=== PATIENT | male | born 1945 | race Caucasian/White ===

== ENCOUNTER 2018-12-15 22:03 | Inpatient (IN) ==
[2018-12-15] MEDS ORDERED: Ipratropium/Albuterol Neb 3 ML IH ONE (22:11)
[2018-12-15] MEDS ORDERED: methylPREDNISolone 125 MG/2 ML VIAL IVP ONE (22:11)
[2018-12-15] MEDS ORDERED: Isovue-370 500 ML BOTTLE IVP ONE ×2 (22:14→23:06)
[2018-12-15] MEDS ORDERED: 0.9 % Sodium Chloride 1,000 ML ONE (22:20)
[2018-12-15 22:28] LABS: Hemoglobin 10.5 g/dL (12.9-16.9); Immature Granulocytes % 0.2 % (0-4); Lymphocytes # 0.8 K/mcL (0.6-4.6); Lymphocytes % 12.8 %; Mean Corpuscular HGB Conc 32.8 g/dL (31.6-35.5); Mean Corpuscular Hemoglobin 31.6 pg (28.0-33.3); Mean Corpuscular Volume 96.4 fL (83.0-100.0); Mean Platelet Volume 9.1 fL (9.4-12.4); Monocytes # 0.2 K/mcL (0.0-1.3); Monocytes % 3.4 %; Neutrophils # 5.4 K/mcL (1.6-8.9); Platelet Count 314 K/mcL (140-400); Red Blood Count 3.32 M/mcL (4.19-5.50); Red Cell Distribution Width 13.1 % (11.5-14.5); Segmented Neutrophils % 83.6 %; White Blood Count 6.4 K/mcL (4.3-11.1)
[2018-12-15 22:48] LABS: ABG Base Excess 3 mEq/L (-2 to 3); ABG HCO3 29 mEq/L (21-27); ABG Oxygen Saturation 78 % (95-98); ABG PCO2 46 mmHg (35-45); ABG PO2 43 mmHg (85-104); ABG TCO2 30 mEq/L (20-26)
[2018-12-15 22:51] LABS: Platelet Estimate Normal (Normal)
[2018-12-15 22:53] LABS: Potassium 5.1 mEq/L (3.5-5.1)
[2018-12-15] MEDS ORDERED: Piperacillin/Tazobactam 3.375 GM in 0.9 % Sodium Chloride Mini Bag 100 ML IVPB ONE (22:58)
[2018-12-15] MEDS ORDERED: 0.9 % Sodium Chloride 500 ML IVC STA (22:58)
[2018-12-15 23:06] LABS: Bilirubin,Urine Negative (Negative); Blood,Urine Negative (Negative); Color,Urine Yellow (Yellow); Glucose,Urine (UA) Normal (Normal); Ketones,Urine Negative (Negative); Leukocyte Esterase,Urine Negative (Negative); Nitrite,Urine Negative (Negative); PH,Urine 5.5 pH Units (5.0-8.0); Protein,Urine Negative (Neg-Trace); Specific Gravity,Urine 1.011 (1.010-1.025); Urobilinogen,Urine Normal (Normal)
[2018-12-15 23:13] LABS: Clarity,Urine Clear (Clear)
[2018-12-15 23:41] LABS: ABG Base Excess 8 mEq/L (-2 to 3); ABG HCO3 33 mEq/L (21-27); ABG Oxygen Saturation 95 % (95-98); ABG PCO2 48 mmHg (35-45); ABG PH 7.45 pH Units (7.32-7.45); ABG PO2 75 mmHg (85-104); ABG TCO2 34 mEq/L (20-26)
[2018-12-15] MEDS ORDERED: 0.9 % Sodium Chloride 1,000 ML IVC ONE (23:41)
[2018-12-15 23:54] LABS: Troponin I 0.03 ng/mL (< 0.04)
[2018-12-16] MEDS ORDERED: *HR* Heparin 5,000 UNIT/ML VIAL IVP ONE (00:17)
[2018-12-16] MEDS ORDERED: *HR* Heparin 5,000 UNIT/ML VIAL IVP PRN (00:17)
[2018-12-16 00:38] LABS: INR 1.1
[2018-12-16] MEDS: Heparin 25,000 UNIT/250 ML D5W 25,000 UNIT/250 ML IV.SOLN IVC SCH (00:39)
[2018-12-16 00:41] LABS: Activated Partial Thrombo Time 26.4 Seconds (26.0-36.0)
[2018-12-16] MEDS ORDERED: 0.9 % Sodium Chloride 1,000 ML IVC SCH (01:00)
[2018-12-16] MEDS ORDERED: Naloxone 0.4 MG/ML INJ IVP PRN (05:57)
[2018-12-16] MEDS ORDERED: Albuterol 2.5 MG/3 ML NEBULIZER IH PRN (06:00)
[2018-12-16] MEDS: MethylPREDNISolone 40 MG/ML VIAL IVP SCH ×3 (06:31→17:13)
[2018-12-16 06:45] LABS: Hematocrit 23.3 % (37.5-50.1); Mean Corpuscular Hemoglobin 32.2 pg (28.0-33.3); Mean Corpuscular Volume 97.5 fL (83.0-100.0); Mean Platelet Volume 8.8 fL (9.4-12.4); Platelet Count 163 K/mcL (140-400); Red Blood Count 2.39 M/mcL (4.19-5.50); White Blood Count 4.1 K/mcL (4.3-11.1)
[2018-12-16] MEDS: *HR* Heparin 5,000 UNIT/ML VIAL IVP PRN ×2 (06:51→19:13)
[2018-12-16 07:01] LABS: Hemoglobin 7.7 g/dL (12.9-16.9)
[2018-12-16 07:15] LABS: BUN/Creatinine Ratio 28 (6-26); Blood Urea Nitrogen 39 mg/dL (8-23); Calcium 8.8 mg/dL (8.6-10.3); Carbon Dioxide 29 mEq/L (23-29); Chloride 96 mEq/L (98-107); Glucose 113 mg/dL (70-105); Osmolality,Calculated 292 (280-300); Potassium 3.6 mEq/L (3.5-5.1); Sodium 136 mEq/L (136-145); eGFR For African Americans > 60 (> 60); eGFR For Non-African Americans 50 (> 60)
[2018-12-16] MEDS: Piperacillin/Tazobactam 3.375 GM in 0.9 % Sodium Chloride Mini Bag 100 ML IVPB SCH ×2 (08:00→16:00)
[2018-12-16 08:09] LABS: Hematocrit 24.5 % (37.5-50.1)
[2018-12-16] MEDS: Ipratropium/Albuterol Neb 3 ML IH SCH ×3 (11:33→23:58)
[2018-12-16 13:09] LABS: Hematocrit 24.9 % (37.5-50.1); Hemoglobin 8.3 g/dL (12.9-16.9)
[2018-12-16] MEDS ORDERED: NIFEdipine XL (24 HR) 30 MG TAB.ER.24 PO SCH (18:00)
[2018-12-16 18:47] LABS: Hematocrit 26.6 % (37.5-50.1)
[2018-12-16] MEDS: Mirtazapine 15 MG TABLET PO SCH (20:11)
[2018-12-17] MEDS: MethylPREDNISolone 40 MG/ML VIAL IVP SCH ×4 (00:21→17:38)
[2018-12-17] MEDS: Piperacillin/Tazobactam 3.375 GM in 0.9 % Sodium Chloride Mini Bag 100 ML IVPB SCH ×3 (00:22→15:58)
[2018-12-17 02:05] LABS: Basophils % 0.2 %; Hematocrit 24.5 % (37.5-50.1); Hemoglobin 8.2 g/dL (12.9-16.9); Immature Granulocytes % 0.5 % (0-4); Lymphocytes # 0.5 K/mcL (0.6-4.6); Lymphocytes % 8.6 %; Mean Corpuscular HGB Conc 33.5 g/dL (31.6-35.5); Mean Corpuscular Hemoglobin 31.8 pg (28.0-33.3); Mean Platelet Volume 9.5 fL (9.4-12.4); Monocytes # 0.2 K/mcL (0.0-1.3); Monocytes % 2.7 %; Neutrophils # 5.2 K/mcL (1.6-8.9); Platelet Count 205 K/mcL (140-400); Red Blood Count 2.58 M/mcL (4.19-5.50); White Blood Count 5.9 K/mcL (4.3-11.1)
[2018-12-17] MEDS: Heparin 25,000 UNIT/250 ML D5W 25,000 UNIT/250 ML IV.SOLN IVC SCH (02:05)
[2018-12-17 02:21] LABS: BUN/Creatinine Ratio 29 (6-26); Blood Urea Nitrogen 38 mg/dL (8-23); Calcium 8.8 mg/dL (8.6-10.3); Carbon Dioxide 29 mEq/L (23-29); Chloride 94 mEq/L (98-107); Glucose 140 mg/dL (70-105); Osmolality,Calculated 287 (280-300); Potassium 3.5 mEq/L (3.5-5.1); Sodium 133 mEq/L (136-145); eGFR For African Americans > 60 (> 60); eGFR For Non-African Americans 54 (> 60)
[2018-12-17] MEDS: Ipratropium/Albuterol Neb 3 ML IH SCH (03:58)
[2018-12-17 04:09] LABS: Hypochromasia Present (Not Present); Platelet Estimate Normal (Normal); Reactive Lymphocytes Present (Not Present)
[2018-12-17] MEDS: Levothyroxine 25 MCG TABLET PO SCH (06:32)
[2018-12-17] MEDS ORDERED: Amiodarone Premix 150 MG/100 ML BAG IVPB ONE (06:59)
[2018-12-17] MEDS ORDERED: 0.9 % Sodium Chloride 1,000 ML IV ONE (07:26)
[2018-12-17] MEDS ORDERED: Aminoglycoside Consult 1 EACH MC ONE (07:57)
[2018-12-17] MEDS: Cyanocobalamin (B-12) 1,000 MCG TABLET PO SCH (07:59)
[2018-12-17] MEDS: Cholecalciferol (D-3) 1,000 UNIT (25MCG) TABLET PO SCH (07:59)
[2018-12-17] MEDS: Furosemide 20 MG TABLET PO SCH (08:00)
[2018-12-17 08:07] LABS: VBG HCO3 30 mEq/L (21-27); VBG PCO2 48 mmHg (41-51); VBG PO2 100 mmHg (25-50)
[2018-12-17 08:07] LABS: INR 1.1; Prothrombin Time 12.7 Seconds (9.4-12.1)
[2018-12-17 08:11] LABS: Hematocrit 24.5 % (37.5-50.1); Hemoglobin 8.3 g/dL (12.9-16.9)
[2018-12-17 08:26] LABS: Alanine Aminotransferase 6 Units/L (7-52); Albumin 2.4 g/dL (3.5-5.7); Albumin/Globulin Ratio 0.7 (1.1-2.2); Alkaline Phosphatase 86 Units/L (34-104); Aspartate Amino Transferase 7 Units/L (13-39); BUN/Creatinine Ratio 29 (6-26); Bilirubin,Total 0.5 mg/dL (0.3-1.0); Blood Urea Nitrogen 37 mg/dL (8-23); Calcium 8.7 mg/dL (8.6-10.3); Carbon Dioxide 29 mEq/L (23-29); Chloride 94 mEq/L (98-107); Globulin 3.3 g/dL (2.4-3.5); Glucose 164 mg/dL (70-105); Magnesium 1.4 mg/dL (1.6-2.6); Osmolality,Calculated 288 (280-300); Phosphorous 3.5 mg/dL (2.7-4.5); Potassium 3.4 mEq/L (3.5-5.1); Sodium 133 mEq/L (136-145); Total Protein 5.7 g/dL (6.4-8.9); eGFR For African Americans > 60 (> 60); eGFR For Non-African Americans 55 (> 60)
[2018-12-17 08:38] LABS: Thyroid Stimulating Hormone 0.598 mcIU/mL (0.340-5.600)
[2018-12-17] MEDS ORDERED: Amiodarone Premix 360 MG/200 ML BAG IVC ONE (08:44)
[2018-12-17] MEDS ORDERED: *HR* FentaNYL (PF) 100 MCG/2 ML VIAL IVP ONE (10:38)
[2018-12-17] MEDS ORDERED: *HR* Midazolam HCl 2 MG/2 ML VIAL IVP ONE (10:38)
[2018-12-17] MEDS ORDERED: *HR* FentaNYL (PF) 100 MCG/2 ML VIAL ONE (10:39)
[2018-12-17] MEDS ORDERED: *HR* Midazolam HCl 2 MG/2 ML VIAL ONE (10:39)
[2018-12-17] MEDS: Levalbuterol Neb 0.63 MG/3 ML IH SCH ×3 (10:59→21:53)
[2018-12-17] MEDS: Tiotropium 18 MCG inhalation IH SCH (11:00)
[2018-12-17] MEDS: Magnesium Oxide 400 MG TABLET PO SCH ×2 (12:27→22:28)
[2018-12-17] MEDS: Amiodarone Premix 360 MG/200 ML BAG IVC SCH (15:57)
[2018-12-17] MEDS: Doxycycline 100 MG CAPSULE PO SCH ×2 (15:57→22:28)
[2018-12-17] MEDS: Mirtazapine 15 MG TABLET PO SCH (22:28)
[2018-12-18] MEDS: MethylPREDNISolone 40 MG/ML VIAL IVP SCH ×4 (00:33→17:21)
[2018-12-18] MEDS: Piperacillin/Tazobactam 3.375 GM in 0.9 % Sodium Chloride Mini Bag 100 ML IVPB SCH ×3 (00:34→17:21)
[2018-12-18 01:44] LABS: BUN/Creatinine Ratio 33 (6-26); Blood Urea Nitrogen 38 mg/dL (8-23); Calcium 8.6 mg/dL (8.6-10.3); Carbon Dioxide 28 mEq/L (23-29); Chloride 96 mEq/L (98-107); Glucose 177 mg/dL (70-105); Osmolality,Calculated 291 (280-300); Potassium 3.5 mEq/L (3.5-5.1); Sodium 134 mEq/L (136-145); eGFR For African Americans > 60 (> 60); eGFR For Non-African Americans > 60 (> 60)
[2018-12-18 01:45] LABS: Basophils % 0.1 %; Hematocrit 24.6 % (37.5-50.1); Hemoglobin 7.9 g/dL (12.9-16.9); Immature Granulocytes % 0.7 % (0-4); Lymphocytes # 0.4 K/mcL (0.6-4.6); Lymphocytes % 4.8 %; Mean Corpuscular HGB Conc 32.1 g/dL (31.6-35.5); Mean Corpuscular Hemoglobin 31.3 pg (28.0-33.3); Mean Corpuscular Volume 97.6 fL (83.0-100.0); Mean Platelet Volume 9.7 fL (9.4-12.4); Monocytes # 0.2 K/mcL (0.0-1.3); Monocytes % 2.7 %; Neutrophils # 6.9 K/mcL (1.6-8.9); Platelet Count 223 K/mcL (140-400); Red Blood Count 2.52 M/mcL (4.19-5.50); Red Cell Distribution Width 13.1 % (11.5-14.5); Segmented Neutrophils % 91.7 %; White Blood Count 7.5 K/mcL (4.3-11.1)
[2018-12-18] MEDS: Amiodarone Premix 360 MG/200 ML BAG IVC SCH ×3 (01:58→22:29)
[2018-12-18] MEDS: Heparin 25,000 UNIT/250 ML D5W 25,000 UNIT/250 ML IV.SOLN IVC SCH (02:20)
[2018-12-18 02:55] LABS: Platelet Estimate Normal (Normal)
[2018-12-18] MEDS: Levalbuterol Neb 0.63 MG/3 ML IH SCH ×4 (04:02→20:58)
[2018-12-18] MEDS: Levothyroxine 25 MCG TABLET PO SCH (05:32)
[2018-12-18] MEDS: Doxycycline 100 MG CAPSULE PO SCH ×2 (09:11→21:13)
[2018-12-18] MEDS: Furosemide 20 MG TABLET PO SCH (09:11)
[2018-12-18] MEDS: Cholecalciferol (D-3) 1,000 UNIT (25MCG) TABLET PO SCH (09:11)
[2018-12-18] MEDS: Cyanocobalamin (B-12) 1,000 MCG TABLET PO SCH (09:11)
[2018-12-18] MEDS: Magnesium Oxide 400 MG TABLET PO SCH ×2 (09:11→21:13)
[2018-12-18] MEDS: Tiotropium 18 MCG inhalation IH SCH (10:07)
[2018-12-18] MEDS: *HR* Amiodarone 200 MG TABLET PO SCH ×2 (11:06→21:15)
[2018-12-18 13:35] LABS: Folate > 22.3 ng/mL (3.0-16.0); Vitamin B12 > 1500 pg/mL (250-1100)
[2018-12-18 13:40] LABS: % Iron Saturation 47 % (20-55); Iron 56 mcg/dL (65-175); Transferrin 85 mg/dL (203-362)
[2018-12-18 14:17] LABS: Ferritin > 1500 ng/mL (20-250)
[2018-12-18] MEDS ORDERED: Warfarin perPT PO PRN (18:00)
[2018-12-18] MEDS ORDERED: *HR* Warfarin 3 MG TABLET PO ONE (18:00)
[2018-12-18] MEDS: Mirtazapine 15 MG TABLET PO SCH (21:13)
[2018-12-18 22:27] LABS: ABG Base Excess 8 mEq/L (-2 to 3); ABG HCO3 33 mEq/L (21-27); ABG Oxygen Saturation 98 % (95-98); ABG PCO2 45 mmHg (35-45); ABG PH 7.47 pH Units (7.32-7.45); ABG PO2 100 mmHg (85-104); ABG TCO2 34 mEq/L (20-26)
[2018-12-19] MEDS: MethylPREDNISolone 40 MG/ML VIAL IVP SCH ×2 (01:29→06:16)
[2018-12-19] MEDS: Piperacillin/Tazobactam 3.375 GM in 0.9 % Sodium Chloride Mini Bag 100 ML IVPB SCH ×2 (01:29→07:41)
[2018-12-19] MEDS: Heparin 25,000 UNIT/250 ML D5W 25,000 UNIT/250 ML IV.SOLN IVC SCH (03:10)
[2018-12-19] MEDS: Levalbuterol Neb 0.63 MG/3 ML IH SCH ×4 (04:41→22:19)
[2018-12-19 04:46] LABS: Basophils % 0.1 %; Hematocrit 24.3 % (37.5-50.1); Hemoglobin 8.3 g/dL (12.9-16.9); Immature Granulocytes % 0.7 % (0-4); Lymphocytes # 0.3 K/mcL (0.6-4.6); Lymphocytes % 3.8 %; Mean Corpuscular HGB Conc 34.2 g/dL (31.6-35.5); Mean Corpuscular Hemoglobin 31.6 pg (28.0-33.3); Mean Corpuscular Volume 92.4 fL (83.0-100.0); Mean Platelet Volume 9.6 fL (9.4-12.4); Monocytes # 0.2 K/mcL (0.0-1.3); Monocytes % 2.5 %; Neutrophils # 7.8 K/mcL (1.6-8.9); Platelet Count 231 K/mcL (140-400); Red Blood Count 2.63 M/mcL (4.19-5.50); Red Cell Distribution Width 13.1 % (11.5-14.5); Segmented Neutrophils % 92.9 %; White Blood Count 8.4 K/mcL (4.3-11.1)
[2018-12-19 04:51] LABS: INR 1.1; Prothrombin Time 12.1 Seconds (9.4-12.1)
[2018-12-19 05:08] LABS: BUN/Creatinine Ratio 32 (6-26); Blood Urea Nitrogen 35 mg/dL (8-23); Calcium 8.4 mg/dL (8.6-10.3); Carbon Dioxide 31 mEq/L (23-29); Chloride 93 mEq/L (98-107); Glucose 149 mg/dL (70-105); Osmolality,Calculated 285 (280-300); Potassium 3.1 mEq/L (3.5-5.1); Sodium 132 mEq/L (136-145); eGFR For African Americans > 60 (> 60); eGFR For Non-African Americans > 60 (> 60)
[2018-12-19] MEDS: Levothyroxine 25 MCG TABLET PO SCH (06:08)
[2018-12-19] MEDS: *HR* Amiodarone 200 MG TABLET PO SCH ×2 (10:13→22:08)
[2018-12-19] MEDS: predniSONE 20 MG TABLET PO SCH (10:13)
[2018-12-19] MEDS: Cyanocobalamin (B-12) 1,000 MCG TABLET PO SCH (10:13)
[2018-12-19] MEDS: Furosemide 20 MG TABLET PO SCH (10:13)
[2018-12-19] MEDS: Magnesium Oxide 400 MG TABLET PO SCH ×2 (10:13→22:08)
[2018-12-19] MEDS: Doxycycline 100 MG CAPSULE PO SCH ×2 (10:13→22:08)
[2018-12-19] MEDS: Cholecalciferol (D-3) 1,000 UNIT (25MCG) TABLET PO SCH (10:14)
[2018-12-19] MEDS: Tiotropium 18 MCG inhalation IH SCH (11:00)
[2018-12-19 12:33] LABS: Hematocrit 24.9 % (37.5-50.1); Hemoglobin 8.6 g/dL (12.9-16.9)
[2018-12-19] MEDS: Pantoprazole 40 MG VIAL IVP SCH (17:03)
[2018-12-19] MEDS ORDERED: *HR* Warfarin 3 MG TABLET PO ONE (18:00)
[2018-12-19 18:38] LABS: Hematocrit 27.7 % (37.5-50.1); Hemoglobin 9.4 g/dL (12.9-16.9)
[2018-12-19] MEDS: Mirtazapine 15 MG TABLET PO SCH (22:08)
[2018-12-20 00:38] LABS: Basophils % 0.1 %; Hematocrit 24.1 % (37.5-50.1); Hemoglobin 8.3 g/dL (12.9-16.9); Immature Granulocytes % 0.4 % (0-4); Lymphocytes # 0.3 K/mcL (0.6-4.6); Lymphocytes % 3.5 %; Mean Corpuscular HGB Conc 34.4 g/dL (31.6-35.5); Mean Corpuscular Hemoglobin 32.2 pg (28.0-33.3); Mean Corpuscular Volume 93.4 fL (83.0-100.0); Mean Platelet Volume 9.6 fL (9.4-12.4); Monocytes # 0.4 K/mcL (0.0-1.3); Monocytes % 4.8 %; Neutrophils # 7.2 K/mcL (1.6-8.9); Platelet Count 210 K/mcL (140-400); Red Blood Count 2.58 M/mcL (4.19-5.50); Red Cell Distribution Width 13.2 % (11.5-14.5); Segmented Neutrophils % 91.2 %; White Blood Count 7.9 K/mcL (4.3-11.1)
[2018-12-20 00:56] LABS: BUN/Creatinine Ratio 27 (6-26); Blood Urea Nitrogen 35 mg/dL (8-23); Calcium 8.5 mg/dL (8.6-10.3); Carbon Dioxide 32 mEq/L (23-29); Chloride 96 mEq/L (98-107); Glucose 171 mg/dL (70-105); Osmolality,Calculated 294 (280-300); Potassium 3.3 mEq/L (3.5-5.1); Sodium 136 mEq/L (136-145); eGFR For African Americans > 60 (> 60); eGFR For Non-African Americans 55 (> 60)
[2018-12-20 01:11] LABS: INR 1.5
[2018-12-20] MEDS: Heparin 25,000 UNIT/250 ML D5W 25,000 UNIT/250 ML IV.SOLN IVC SCH (02:52)
[2018-12-20] MEDS: Levalbuterol Neb 0.63 MG/3 ML IH SCH ×4 (03:34→21:17)
[2018-12-20] MEDS: Levothyroxine 25 MCG TABLET PO SCH (06:27)
[2018-12-20] MEDS: Pantoprazole 40 MG VIAL IVP SCH ×2 (06:28→16:46)
[2018-12-20] MEDS: Doxycycline 100 MG CAPSULE PO SCH ×2 (07:53→19:48)
[2018-12-20] MEDS: predniSONE 20 MG TABLET PO SCH (07:53)
[2018-12-20] MEDS: Cholecalciferol (D-3) 1,000 UNIT (25MCG) TABLET PO SCH (07:53)
[2018-12-20] MEDS: Furosemide 20 MG TABLET PO SCH (07:53)
[2018-12-20] MEDS: *HR* Amiodarone 200 MG TABLET PO SCH ×2 (07:53→19:48)
[2018-12-20] MEDS: Magnesium Oxide 400 MG TABLET PO SCH ×2 (07:54→19:48)
[2018-12-20] MEDS: Cyanocobalamin (B-12) 1,000 MCG TABLET PO SCH (07:54)
[2018-12-20] MEDS: Tiotropium 18 MCG inhalation IH SCH (10:14)
[2018-12-20] MEDS ORDERED: Acetaminophen 325 MG TABLET PO PRN (16:14)
[2018-12-20] MEDS ORDERED: *HR* Warfarin 3 MG TABLET PO ONE (18:00)
[2018-12-20] MEDS: Mirtazapine 15 MG TABLET PO SCH (19:48)
[2018-12-21 00:42] LABS: Eosinophils % 0.3 %; Hematocrit 25.5 % (37.5-50.1); Hemoglobin 8.1 g/dL (12.9-16.9); Immature Granulocytes % 0.7 % (0-4); Lymphocytes # 0.2 K/mcL (0.6-4.6); Lymphocytes % 5.4 %; Mean Corpuscular HGB Conc 31.8 g/dL (31.6-35.5); Mean Corpuscular Volume 97.7 fL (83.0-100.0); Mean Platelet Volume 9.5 fL (9.4-12.4); Monocytes # 0.1 K/mcL (0.0-1.3); Monocytes % 3.3 %; Neutrophils # 2.7 K/mcL (1.6-8.9); Platelet Count 153 K/mcL (140-400); Red Blood Count 2.61 M/mcL (4.19-5.50); Red Cell Distribution Width 13.2 % (11.5-14.5); Segmented Neutrophils % 90.3 %
[2018-12-21 00:43] LABS: INR 2.6
[2018-12-21] MEDS: Heparin 25,000 UNIT/250 ML D5W 25,000 UNIT/250 ML IV.SOLN IVC SCH (01:27)
[2018-12-21 02:10] LABS: BUN/Creatinine Ratio 28 (6-26); Blood Urea Nitrogen 29 mg/dL (8-23); Calcium 8.6 mg/dL (8.6-10.3); Carbon Dioxide 33 mEq/L (23-29); Chloride 99 mEq/L (98-107); Glucose 102 mg/dL (70-105); Osmolality,Calculated 294 (280-300); Potassium 3.5 mEq/L (3.5-5.1); Sodium 139 mEq/L (136-145); eGFR For African Americans > 60 (> 60); eGFR For Non-African Americans > 60 (> 60)
[2018-12-21] MEDS: Levalbuterol Neb 0.63 MG/3 ML IH SCH ×4 (03:23→22:11)
[2018-12-21] MEDS: Pantoprazole 40 MG VIAL IVP SCH ×2 (06:42→18:00)
[2018-12-21] MEDS: Levothyroxine 25 MCG TABLET PO SCH (06:42)
[2018-12-21] MEDS: predniSONE 20 MG TABLET PO SCH (09:51)
[2018-12-21] MEDS: Doxycycline 100 MG CAPSULE PO SCH ×2 (09:51→21:29)
[2018-12-21] MEDS: Cyanocobalamin (B-12) 1,000 MCG TABLET PO SCH (09:52)
[2018-12-21] MEDS: Magnesium Oxide 400 MG TABLET PO SCH ×2 (09:52→21:29)
[2018-12-21] MEDS: Cholecalciferol (D-3) 1,000 UNIT (25MCG) TABLET PO SCH (09:52)
[2018-12-21] MEDS: Furosemide 20 MG TABLET PO SCH (09:52)
[2018-12-21] MEDS: *HR* Amiodarone 200 MG TABLET PO SCH ×2 (09:53→21:29)
[2018-12-21] MEDS: Tiotropium 18 MCG inhalation IH SCH (10:04)
[2018-12-21] MEDS ORDERED: Heparin 1,000 UNITS/500 mL 500 ML ONE (12:00)
[2018-12-21] MEDS ORDERED: 0.9 % Sodium Chloride 500 ML ONE (12:08)
[2018-12-21] MEDS ORDERED: Isovue-300 50ML VIAL IVP ONE (12:25)
[2018-12-21] MEDS ORDERED: E-Z-HD (BARIUM SULF) SUSPENSION PO ONE (14:58)
[2018-12-21] MEDS ORDERED: E-Z-PAQUE (BARIUM SULF) SUSP 1 BOTTLE PO ONE (14:58)
[2018-12-21] MEDS ORDERED: *HR* Warfarin 2 MG TABLET PO ONE (18:00)
[2018-12-21] MEDS: Mirtazapine 15 MG TABLET PO SCH (21:29)
[2018-12-22 00:59] LABS: Hematocrit 25.8 % (37.5-50.1); Hemoglobin 8.2 g/dL (12.9-16.9); Immature Granulocytes % 0.6 % (0-4); Lymphocytes # 0.3 K/mcL (0.6-4.6); Lymphocytes % 7.5 %; Mean Corpuscular HGB Conc 31.8 g/dL (31.6-35.5); Mean Corpuscular Hemoglobin 31.4 pg (28.0-33.3); Mean Corpuscular Volume 98.9 fL (83.0-100.0); Mean Platelet Volume 9.6 fL (9.4-12.4); Monocytes # 0.1 K/mcL (0.0-1.3); Monocytes % 1.8 %; Platelet Count 125 K/mcL (140-400); Red Blood Count 2.61 M/mcL (4.19-5.50); Red Cell Distribution Width 13.3 % (11.5-14.5); Segmented Neutrophils % 90.1 %; White Blood Count 3.3 K/mcL (4.3-11.1)
[2018-12-22 01:08] LABS: Prothrombin Time 34.7 Seconds (9.4-12.1)
[2018-12-22 01:19] LABS: BUN/Creatinine Ratio 30 (6-26); Blood Urea Nitrogen 31 mg/dL (8-23); Calcium 8.8 mg/dL (8.6-10.3); Carbon Dioxide 36 mEq/L (23-29); Chloride 100 mEq/L (98-107); Glucose 179 mg/dL (70-105); Osmolality,Calculated 303 (280-300); Potassium 4.1 mEq/L (3.5-5.1); Sodium 141 mEq/L (136-145); eGFR For African Americans > 60 (> 60); eGFR For Non-African Americans > 60 (> 60)
[2018-12-22] MEDS: Levalbuterol Neb 0.63 MG/3 ML IH SCH ×4 (03:23→21:12)
[2018-12-22 04:03] LABS: ABG Base Excess 14 mEq/L (-2 to 3); ABG HCO3 38 mEq/L (21-27); ABG Oxygen Saturation 85 % (95-98); ABG PCO2 47 mmHg (35-45); ABG PH 7.51 pH Units (7.32-7.45); ABG PO2 46 mmHg (85-104); ABG TCO2 40 mEq/L (20-26); Blood Gas Modality BiLevel
[2018-12-22] MEDS: Levothyroxine 25 MCG TABLET PO SCH (05:13)
[2018-12-22] MEDS: Pantoprazole 40 MG VIAL IVP SCH ×2 (05:13→17:48)
[2018-12-22 05:30] LABS: ABG Base Excess 14 mEq/L (-2 to 3); ABG HCO3 38 mEq/L (21-27); ABG Oxygen Saturation 98 % (95-98); ABG PCO2 43 mmHg (35-45); ABG PH 7.55 pH Units (7.32-7.45); ABG PO2 88 mmHg (85-104); ABG TCO2 39 mEq/L (20-26); Blood Gas Modality BiLevel
[2018-12-22] MEDS: *HR* Amiodarone 200 MG TABLET PO SCH ×2 (09:43→20:41)
[2018-12-22] MEDS: Doxycycline 100 MG CAPSULE PO SCH ×2 (09:44→20:41)
[2018-12-22] MEDS: Magnesium Oxide 400 MG TABLET PO SCH ×2 (09:44→20:41)
[2018-12-22] MEDS: Furosemide 20 MG TABLET PO SCH (09:44)
[2018-12-22] MEDS: predniSONE 20 MG TABLET PO SCH (09:44)
[2018-12-22] MEDS: Cholecalciferol (D-3) 1,000 UNIT (25MCG) TABLET PO SCH (09:44)
[2018-12-22] MEDS: Cyanocobalamin (B-12) 1,000 MCG TABLET PO SCH (09:44)
[2018-12-22] MEDS ORDERED: 0.9 % Sodium Chloride 250 ML IV ONE ×3 (10:10→15:54)
[2018-12-22] MEDS: Piperacillin/Tazobactam 3.375 GM in 0.9 % Sodium Chloride Mini Bag 100 ML IVPB SCH ×2 (10:39→20:42)
[2018-12-22] MEDS: Tiotropium 18 MCG inhalation IH SCH (10:49)
[2018-12-22] MEDS ORDERED: 0.9 % Sodium Chloride 1,000 ML IVC ONE (12:32)
[2018-12-22 13:29] LABS: Hematocrit 29.7 % (37.5-50.1); Hemoglobin 9.5 g/dL (12.9-16.9); Mean Corpuscular Volume 97.1 fL (83.0-100.0); Mean Platelet Volume 10.1 fL (9.4-12.4); Platelet Count 160 K/mcL (140-400); Red Blood Count 3.06 M/mcL (4.19-5.50); Red Cell Distribution Width 13.2 % (11.5-14.5)
[2018-12-22 13:32] LABS: White Blood Count 5.7 K/mcL (4.3-11.1)
[2018-12-22 15:29] LABS: Troponin I < 0.03 ng/mL (< 0.04)
[2018-12-22] MEDS ORDERED: Naloxone 0.4 MG/ML INJ IVP PRN (16:31)
[2018-12-22] MEDS ORDERED: *HR* Warfarin 1 MG TABLET PO ONE (18:00)
[2018-12-22] MEDS: Mirtazapine 15 MG TABLET PO SCH (20:41)
[2018-12-23] MEDS: Levalbuterol Neb 0.63 MG/3 ML IH SCH ×4 (03:37→22:50)
[2018-12-23] MEDS: Piperacillin/Tazobactam 3.375 GM in 0.9 % Sodium Chloride Mini Bag 100 ML IVPB SCH ×3 (04:00→20:14)
[2018-12-23 04:56] LABS: Hematocrit 27.2 % (37.5-50.1); Hemoglobin 8.9 g/dL (12.9-16.9)
[2018-12-23 05:14] LABS: INR 5.1; Prothrombin Time 58.6 Seconds (9.4-12.1)
[2018-12-23] MEDS: Pantoprazole 40 MG VIAL IVP SCH (05:22)
[2018-12-23] MEDS: Levothyroxine 25 MCG TABLET PO SCH (05:23)
[2018-12-23 08:19] LABS: Basophils % 0.2 %; Eosinophils % 0.2 %; Hematocrit 29.7 % (37.5-50.1); Hemoglobin 9.1 g/dL (12.9-16.9); Immature Granulocytes % 0.7 % (0-4); Lymphocytes # 0.8 K/mcL (0.6-4.6); Lymphocytes % 13.1 %; Mean Corpuscular HGB Conc 30.6 g/dL (31.6-35.5); Mean Corpuscular Hemoglobin 31.2 pg (28.0-33.3); Mean Corpuscular Volume 101.7 fL (83.0-100.0); Monocytes # 0.2 K/mcL (0.0-1.3); Monocytes % 3.2 %; Neutrophils # 4.7 K/mcL (1.6-8.9); Platelet Count 151 K/mcL (140-400); Red Blood Count 2.92 M/mcL (4.19-5.50); Red Cell Distribution Width 13.6 % (11.5-14.5); Segmented Neutrophils % 82.6 %; White Blood Count 5.7 K/mcL (4.3-11.1)
[2018-12-23 08:36] LABS: BUN/Creatinine Ratio 26 (6-26); Blood Urea Nitrogen 34 mg/dL (8-23); Calcium 8.8 mg/dL (8.6-10.3); Carbon Dioxide 33 mEq/L (23-29); Chloride 104 mEq/L (98-107); Glucose 73 mg/dL (70-105); Osmolality,Calculated 306 (280-300); Potassium 3.8 mEq/L (3.5-5.1); Sodium 145 mEq/L (136-145); eGFR For African Americans > 60 (> 60); eGFR For Non-African Americans 54 (> 60)
[2018-12-23] MEDS: Tiotropium 18 MCG inhalation IH SCH (09:04)
[2018-12-23] MEDS: Cholecalciferol (D-3) 1,000 UNIT (25MCG) TABLET PO SCH (09:46)
[2018-12-23] MEDS: predniSONE 20 MG TABLET PO SCH (09:46)
[2018-12-23] MEDS: Magnesium Oxide 400 MG TABLET PO SCH ×2 (09:46→20:12)
[2018-12-23] MEDS: Cyanocobalamin (B-12) 1,000 MCG TABLET PO SCH (09:47)
[2018-12-23] MEDS: *HR* Amiodarone 200 MG TABLET PO SCH ×2 (09:47→20:12)
[2018-12-23 10:59] LABS: Alanine Aminotransferase 9 Units/L (7-52); Albumin 2.7 g/dL (3.5-5.7); Albumin/Globulin Ratio 0.9 (1.1-2.2); Alkaline Phosphatase 79 Units/L (34-104); Aspartate Amino Transferase 11 Units/L (13-39); Bilirubin,Direct 0.2 mg/dL (0.0-0.2); Bilirubin,Indirect 0.5 mg/dL (0.0-1.0); Bilirubin,Total 0.7 mg/dL (0.3-1.0); Total Protein 5.7 g/dL (6.4-8.9)
[2018-12-23] MEDS: Potassium Chloride Elixir 20 MEQ/15 ML UDC PO SCH (11:51)
[2018-12-23] MEDS ORDERED: Furosemide 40 MG/4 ML VIAL IVP ONE (12:12)
[2018-12-23] MEDS: Doxycycline 100 MG in 0.9 % Sodium Chloride Mini Bag 100 ML IVPB SCH (17:40)
[2018-12-23] MEDS: Mirtazapine 15 MG TABLET PO SCH (20:12)
[2018-12-24] MEDS: Levalbuterol Neb 0.63 MG/3 ML IH SCH ×4 (03:50→21:48)
[2018-12-24] MEDS: Piperacillin/Tazobactam 3.375 GM in 0.9 % Sodium Chloride Mini Bag 100 ML IVPB SCH ×3 (03:51→21:48)
[2018-12-24 05:08] LABS: Hematocrit 29.5 % (37.5-50.1); Hemoglobin 9.5 g/dL (12.9-16.9); Immature Granulocytes % 0.7 % (0-4); Lymphocytes # 1.1 K/mcL (0.6-4.6); Lymphocytes % 14.5 %; Mean Corpuscular HGB Conc 32.2 g/dL (31.6-35.5); Mean Corpuscular Hemoglobin 30.8 pg (28.0-33.3); Mean Corpuscular Volume 95.8 fL (83.0-100.0); Monocytes # 0.3 K/mcL (0.0-1.3); Monocytes % 3.9 %; Neutrophils # 5.8 K/mcL (1.6-8.9); Platelet Count 144 K/mcL (140-400); Red Blood Count 3.08 M/mcL (4.19-5.50); Red Cell Distribution Width 13.3 % (11.5-14.5); Segmented Neutrophils % 80.9 %; White Blood Count 7.2 K/mcL (4.3-11.1)
[2018-12-24 05:20] LABS: INR 4.8; Prothrombin Time 54.5 Seconds (9.4-12.1)
[2018-12-24] MEDS: Doxycycline 100 MG in 0.9 % Sodium Chloride Mini Bag 100 ML IVPB SCH ×2 (05:22→17:18)
[2018-12-24] MEDS: Levothyroxine 25 MCG TABLET PO SCH (05:22)
[2018-12-24 05:29] LABS: BUN/Creatinine Ratio 29 (6-26); Blood Urea Nitrogen 36 mg/dL (8-23); Carbon Dioxide 34 mEq/L (23-29); Chloride 99 mEq/L (98-107); Glucose 140 mg/dL (70-105); Osmolality,Calculated 303 (280-300); Potassium 3.8 mEq/L (3.5-5.1); Sodium 141 mEq/L (136-145); eGFR For African Americans > 60 (> 60); eGFR For Non-African Americans 56 (> 60)
[2018-12-24] MEDS: Cholecalciferol (D-3) 1,000 UNIT (25MCG) TABLET PO SCH (08:36)
[2018-12-24] MEDS: Magnesium Oxide 400 MG TABLET PO SCH ×2 (08:37→21:44)
[2018-12-24] MEDS: *HR* Amiodarone 200 MG TABLET PO SCH ×2 (08:37→21:43)
[2018-12-24] MEDS: predniSONE 20 MG TABLET PO SCH (08:37)
[2018-12-24] MEDS: Cyanocobalamin (B-12) 1,000 MCG TABLET PO SCH (08:37)
[2018-12-24] MEDS: Potassium Chloride Elixir 20 MEQ/15 ML UDC PO SCH (08:37)
[2018-12-24] MEDS ORDERED: Furosemide 40 MG/4 ML VIAL IVP SCH (09:45)
[2018-12-24] MEDS: Tiotropium 18 MCG inhalation IH SCH (11:17)
[2018-12-24] MEDS ORDERED: Furosemide 20 MG/2 ML VIAL IVP ONE (17:14)
[2018-12-24] MEDS ORDERED: Acetaminophen 325 MG TABLET PO PRN (19:21)
[2018-12-24] MEDS ORDERED: Naloxone 0.4 MG/ML INJ IVP PRN (19:21)
[2018-12-24] MEDS: Mirtazapine 15 MG TABLET PO SCH (21:42)
[2018-12-25] MEDS: Levalbuterol Neb 0.63 MG/3 ML IH SCH ×4 (03:23→22:44)
[2018-12-25] MEDS: Piperacillin/Tazobactam 3.375 GM in 0.9 % Sodium Chloride Mini Bag 100 ML IVPB SCH ×3 (04:17→20:39)
[2018-12-25] MEDS: Levothyroxine 25 MCG TABLET PO SCH (05:59)
[2018-12-25] MEDS ORDERED: Doxycycline 100 MG in 0.9 % Sodium Chloride Mini Bag 100 ML IVPB SCH (06:00)
[2018-12-25 06:09] LABS: INR 4.9; Prothrombin Time 55.4 Seconds (9.4-12.1)
[2018-12-25] MEDS: Cholecalciferol (D-3) 1,000 UNIT (25MCG) TABLET PO SCH (08:21)
[2018-12-25] MEDS: *HR* Amiodarone 200 MG TABLET PO SCH ×2 (08:22→20:38)
[2018-12-25] MEDS: Cyanocobalamin (B-12) 1,000 MCG TABLET PO SCH (08:22)
[2018-12-25] MEDS: predniSONE 20 MG TABLET PO SCH (08:22)
[2018-12-25] MEDS: Magnesium Oxide 400 MG TABLET PO SCH ×2 (08:22→20:38)
[2018-12-25] MEDS: Potassium Chloride Elixir 20 MEQ/15 ML UDC PO SCH (08:23)
[2018-12-25 08:55] LABS: Hematocrit 28.4 % (37.5-50.1); Hemoglobin 9.2 g/dL (12.9-16.9); Mean Corpuscular HGB Conc 32.4 g/dL (31.6-35.5); Mean Corpuscular Hemoglobin 31.2 pg (28.0-33.3); Mean Corpuscular Volume 96.3 fL (83.0-100.0); Platelet Count 141 K/mcL (140-400); Red Blood Count 2.95 M/mcL (4.19-5.50); Red Cell Distribution Width 13.5 % (11.5-14.5); White Blood Count 12.3 K/mcL (4.3-11.1)
[2018-12-25 09:15] LABS: Alanine Aminotransferase 8 Units/L (7-52); Albumin 2.6 g/dL (3.5-5.7); Alkaline Phosphatase 71 Units/L (34-104); Aspartate Amino Transferase 9 Units/L (13-39); BUN/Creatinine Ratio 29 (6-26); Bilirubin,Total 0.5 mg/dL (0.3-1.0); Blood Urea Nitrogen 37 mg/dL (8-23); Carbon Dioxide 36 mEq/L (23-29); Chloride 99 mEq/L (98-107); Globulin 2.7 g/dL (2.4-3.5); Glucose 98 mg/dL (70-105); Osmolality,Calculated 305 (280-300); Potassium 4.1 mEq/L (3.5-5.1); Sodium 143 mEq/L (136-145); Total Protein 5.3 g/dL (6.4-8.9); eGFR For African Americans > 60 (> 60); eGFR For Non-African Americans 55 (> 60)
[2018-12-25] MEDS ORDERED: Furosemide 20 MG TABLET PO SCH (09:39)
[2018-12-25] MEDS: Tiotropium 18 MCG inhalation IH SCH (10:20)
[2018-12-25] MEDS: Doxycycline 100 MG CAPSULE PO SCH (17:22)
[2018-12-25] MEDS: Mirtazapine 15 MG TABLET PO SCH (20:38)
[2018-12-26] MEDS: Levalbuterol Neb 0.63 MG/3 ML IH SCH ×4 (03:40→21:15)
[2018-12-26 05:09] LABS: Hematocrit 25.4 % (37.5-50.1); Hemoglobin 8.3 g/dL (12.9-16.9); Mean Corpuscular HGB Conc 32.7 g/dL (31.6-35.5); Mean Corpuscular Hemoglobin 31.4 pg (28.0-33.3); Mean Corpuscular Volume 96.2 fL (83.0-100.0); Mean Platelet Volume 10.1 fL (9.4-12.4); Platelet Count 129 K/mcL (140-400); Red Blood Count 2.64 M/mcL (4.19-5.50); Red Cell Distribution Width 13.8 % (11.5-14.5); White Blood Count 12.2 K/mcL (4.3-11.1)
[2018-12-26 05:10] LABS: INR 3.9
[2018-12-26 05:29] LABS: Calcium 9.2 mg/dL (8.6-10.3); Potassium 4.3 mEq/L (3.5-5.1)
[2018-12-26] MEDS: Levothyroxine 25 MCG TABLET PO SCH (05:33)
[2018-12-26] MEDS: Doxycycline 100 MG CAPSULE PO SCH ×2 (05:33→19:26)
[2018-12-26] MEDS: Piperacillin/Tazobactam 3.375 GM in 0.9 % Sodium Chloride Mini Bag 100 ML IVPB SCH ×3 (05:33→20:21)
[2018-12-26] MEDS ORDERED: methylPREDNISolone 125 MG/2 ML VIAL IVP ONE (06:55)
[2018-12-26] MEDS ORDERED: 0.9 % Sodium Chloride 500 ML IVC ONE (06:57)
[2018-12-26] MEDS ORDERED: methylPREDNISolone 125 MG/2 ML VIAL ONE (06:57)
[2018-12-26] MEDS ORDERED: 0.9 % Sodium Chloride 500 ML ONE (06:57)
[2018-12-26] MEDS ORDERED: Furosemide 20 MG TABLET PO SCH (09:00)
[2018-12-26] MEDS ORDERED: Levalbuterol Neb 0.63 MG/3 ML ONE (10:43)
[2018-12-26] MEDS: Tiotropium 18 MCG inhalation IH SCH (11:02)
[2018-12-26] MEDS: Magnesium Oxide 400 MG TABLET PO SCH ×2 (12:04→20:23)
[2018-12-26] MEDS: Potassium Chloride Elixir 20 MEQ/15 ML UDC PO SCH (12:04)
[2018-12-26] MEDS: Furosemide 20 MG TABLET PO SCH (12:05)
[2018-12-26] MEDS: predniSONE 20 MG TABLET PO SCH (12:05)
[2018-12-26] MEDS: *HR* Amiodarone 200 MG TABLET PO SCH ×2 (12:05→20:23)
[2018-12-26] MEDS: Cyanocobalamin (B-12) 1,000 MCG TABLET PO SCH (12:05)
[2018-12-26] MEDS: Cholecalciferol (D-3) 1,000 UNIT (25MCG) TABLET PO SCH (12:05)
[2018-12-26] MEDS: Mirtazapine 15 MG TABLET PO SCH (20:23)
[2018-12-27] MEDS: Levalbuterol Neb 0.63 MG/3 ML IH SCH ×4 (03:30→21:38)
[2018-12-27] MEDS: Piperacillin/Tazobactam 3.375 GM in 0.9 % Sodium Chloride Mini Bag 100 ML IVPB SCH ×3 (04:00→20:25)
[2018-12-27 05:04] LABS: Hematocrit 25.5 % (37.5-50.1); Hemoglobin 7.8 g/dL (12.9-16.9); Mean Corpuscular HGB Conc 30.6 g/dL (31.6-35.5); Mean Corpuscular Hemoglobin 30.8 pg (28.0-33.3); Mean Corpuscular Volume 100.8 fL (83.0-100.0); Mean Platelet Volume 10.5 fL (9.4-12.4); Platelet Count 133 K/mcL (140-400); Red Blood Count 2.53 M/mcL (4.19-5.50); Red Cell Distribution Width 13.7 % (11.5-14.5); White Blood Count 7.6 K/mcL (4.3-11.1)
[2018-12-27 05:25] LABS: Calcium 9.2 mg/dL (8.6-10.3); Potassium 4.5 mEq/L (3.5-5.1)
[2018-12-27] MEDS: Doxycycline 100 MG CAPSULE PO SCH ×2 (06:02→17:01)
[2018-12-27] MEDS: Levothyroxine 25 MCG TABLET PO SCH (06:02)
[2018-12-27] MEDS: Cyanocobalamin (B-12) 1,000 MCG TABLET PO SCH (09:23)
[2018-12-27] MEDS: Cholecalciferol (D-3) 1,000 UNIT (25MCG) TABLET PO SCH (09:23)
[2018-12-27] MEDS: predniSONE 20 MG TABLET PO SCH (09:23)
[2018-12-27] MEDS: *HR* Amiodarone 200 MG TABLET PO SCH ×2 (09:23→20:36)
[2018-12-27] MEDS: Furosemide 20 MG TABLET PO SCH (09:23)
[2018-12-27] MEDS: Magnesium Oxide 400 MG TABLET PO SCH ×2 (09:24→20:35)
[2018-12-27] MEDS: Potassium Chloride Elixir 20 MEQ/15 ML UDC PO SCH (09:24)
[2018-12-27] MEDS: Tiotropium 18 MCG inhalation IH SCH (10:15)
[2018-12-27] MEDS ORDERED: Naloxone 0.4 MG/ML INJ IVP PRN (12:56)
[2018-12-27] MEDS ORDERED: Acetaminophen 325 MG TABLET PO PRN (12:56)
[2018-12-27] MEDS ORDERED: 0.9 % Sodium Chloride 500 ML IVC ONE ×2 (19:41→19:45)
[2018-12-27] MEDS ORDERED: 0.9 % Sodium Chloride 500 ML ONE (19:41)
[2018-12-27] MEDS: Albumin 25% 25gram/100mL 25 GM/100 ML IV.SOLN IVC SCH ×2 (20:17→23:00)
[2018-12-27] MEDS ORDERED: Mirtazapine 15 MG TABLET PO SCH (21:00)
[2018-12-28] MEDS: Piperacillin/Tazobactam 3.375 GM in 0.9 % Sodium Chloride Mini Bag 100 ML IVPB SCH ×3 (03:49→23:55)
[2018-12-28] MEDS: Levalbuterol Neb 0.63 MG/3 ML IH SCH ×3 (04:00→15:28)
[2018-12-28 04:45] LABS: Hemoglobin 7.3 g/dL (12.9-16.9); Mean Corpuscular Hemoglobin 30.9 pg (28.0-33.3); Red Blood Count 2.36 M/mcL (4.19-5.50)
[2018-12-28 04:47] LABS: Hematocrit 23.1 % (37.5-50.1); Immature Granulocytes % 0.2 % (0-4); Immature Platelets 4.8 % (1.1-6.1); Lymphocytes # 0.4 K/mcL (0.6-4.6); Lymphocytes % 9.7 %; Mean Corpuscular HGB Conc 31.6 g/dL (31.6-35.5); Mean Corpuscular Volume 97.9 fL (83.0-100.0); Mean Platelet Volume 11.3 fL (9.4-12.4); Monocytes # 0.1 K/mcL (0.0-1.3); Monocytes % 1.8 %; Segmented Neutrophils % 88.3 %; White Blood Count 4.5 K/mcL (4.3-11.1)
[2018-12-28 05:03] LABS: Calcium 9.1 mg/dL (8.6-10.3); Potassium 4.9 mEq/L (3.5-5.1)
[2018-12-28 05:36] LABS: Platelet Count 91 K/mcL (140-400)
[2018-12-28 05:39] LABS: Platelet Estimate Slight Decrease (Normal)
[2018-12-28] MEDS: Doxycycline 100 MG CAPSULE PO SCH (05:52)
[2018-12-28] MEDS ORDERED: Levothyroxine 25 MCG TABLET PO SCH (06:30)
[2018-12-28] MEDS: Magnesium Oxide 400 MG TABLET PO SCH (08:46)
[2018-12-28] MEDS: *HR* Amiodarone 200 MG TABLET PO SCH ×2 (08:48→20:18)
[2018-12-28] MEDS ORDERED: predniSONE 20 MG TABLET PO SCH (09:00)
[2018-12-28] MEDS ORDERED: Cyanocobalamin (B-12) 1,000 MCG TABLET PO SCH (09:00)
[2018-12-28] MEDS ORDERED: Furosemide 20 MG TABLET PO SCH (09:00)
[2018-12-28] MEDS ORDERED: Cholecalciferol (D-3) 1,000 UNIT (25MCG) TABLET PO SCH (09:00)
[2018-12-28] MEDS ORDERED: Potassium Chloride Elixir 20 MEQ/15 ML UDC PO SCH (09:00)
[2018-12-28] MEDS ORDERED: Tiotropium 18 MCG inhalation IH SCH (10:00)
[2018-12-28] MEDS ORDERED: *HR* LORazepam Oral Conc 2 MG/ML SL PRN (11:19)
[2018-12-28] MEDS ORDERED: Piperacillin/Tazobactam 3.375 GM in 0.9 % Sodium Chloride Mini Bag 100 ML IVPB SCH (16:00)
[2018-12-28] MEDS: Doxycycline 100 MG in 0.9 % Sodium Chloride Mini Bag 100 ML IVPB SCH (17:42)
[2018-12-28] MEDS ORDERED: Doxycycline 100 MG in 0.9 % Sodium Chloride Mini Bag 100 ML IVPB SCH (18:00)
[2018-12-29 05:58] LABS: Hemoglobin 7.9 g/dL (12.9-16.9); Mean Corpuscular Volume 101.2 fL (83.0-100.0)
[2018-12-29 06:00] LABS: Immature Platelets 3.7 % (1.1-6.1); Mean Corpuscular HGB Conc 30.4 g/dL (31.6-35.5); Mean Corpuscular Hemoglobin 30.7 pg (28.0-33.3); Mean Platelet Volume 11.2 fL (9.4-12.4); Red Blood Count 2.57 M/mcL (4.19-5.50); Red Cell Distribution Width 14.4 % (11.5-14.5); White Blood Count 3.9 K/mcL (4.3-11.1)
[2018-12-29 06:16] LABS: Potassium 4.6 mEq/L (3.5-5.1)
[2018-12-29] MEDS: Doxycycline 100 MG in 0.9 % Sodium Chloride Mini Bag 100 ML IVPB SCH (06:17)
[2018-12-29] MEDS ORDERED: Levothyroxine Sodium 100 MCG VIAL IVP SCH ×2 (06:30→09:00)
[2018-12-29] MEDS: Piperacillin/Tazobactam 3.375 GM in 0.9 % Sodium Chloride Mini Bag 100 ML IVPB SCH (08:31)
[2018-12-29] MEDS: *HR* Amiodarone 200 MG TABLET PO SCH ×2 (08:32→20:07)
[2018-12-29] MEDS ORDERED: MethylPREDNISolone 40 MG/ML VIAL IVP SCH ×2 (09:00)
[2018-12-29] MEDS ORDERED: *HR* LORazepam Oral Conc 2 MG/ML SL PRN (09:48)
[2018-12-29] MEDS ORDERED: Tiotropium 18 MCG inhalation IH SCH (10:00)
[2018-12-29] MEDS ORDERED: Doxycycline 100 MG CAPSULE PO SCH (18:00)
[2018-12-30] MEDS ORDERED: 0.9 % Sodium Chloride 250 ML IVC ONE ×2 (01:41→05:08)
[2018-12-30] MEDS ORDERED: Levothyroxine 25 MCG TABLET PO SCH (06:30)
[2018-12-30 08:01] VITALS: BP 135/57
[2018-12-30] MEDS ORDERED: predniSONE 20 MG TABLET PO SCH (09:00)
[2018-12-30] MEDS: *HR* Amiodarone 200 MG TABLET PO SCH (09:42)
== END 2018-12-30 10:51 | disposition hospice, home (50) | DRG 853 ==
LOC: 2NNU 22:03 → EMEROOARM 22:03 → SUATTDRO 12-16 01:39 → 2NNU 12-16 02:15 → SUATTDRO 12-16 14:13 → ICNU 12-22 16:40 → 2ANU 12-24 18:58 → ICNU 12-26 09:47 → 2ANU 12-28 17:25
PROVIDERS: ADMIT Internal Medicine; ATTEND Internal Medicine